=== PATIENT | female | born 1980 | race Caucasian/White ===

== ENCOUNTER 2017-04-16 12:32 | Emergency (ER) | payer OTHER ==
--- NOTE | ~2017-04-16 | MR18 ---
[facility] A Service of [facility] RADIOLOGY TEXT RESULTS PATIENT: SARAH ROMO LOCATION: [facility] : 78 UNIT #: [id number] AGE: [address]: Stepan Deluna DO SEX: F ORDER DR: [id number] [facility] [address] [place], [place] [address] [id number] E MR#: [id number] Acc #: [id number] NAME: SARAH ROMO : 1980 SEX: F STUDY DATE/TIME: 04/16/2017 14:25 UNIT: [facility] ROOM: STUDY DESCRIPTION: MR Brain Wo Contrast Attending Physician: Stepan Deluna D.O. Ordering Physician: Stepan Deluna D.O. Primary Care Physician: Scooby Madison M.D. MRI CENTER REPORT This report is preliminary unless electronic signature is present. EXAM MRI of the brain without contrast dated 04/16/2017. COMPARISON MRI brain without contrast dated 11/23/2014. HISTORY Facial numbness, possible right leg numbness with headache since 09:00 a.m. today. Possible stroke. FINDINGS Multisequence multiplanar imaging of the brain was obtained without contrast. No acute stroke, space-occupying intracranial mass, mass effect, midline shift or hydrocephalus. Age-appropriate parenchymal volume is seen. Vascular flow voids of the major cerebral arteries and dural venous sinuses are not completely included in these thicker slices. Thick slices through the sella with the pituitary gland, pineal region and upper cervical spine are within normal limits. Varying degrees of paranasal sinus mucosal thickening is noted, relatively worse in bilateral ethmoid sinuses, followed by bilateral maxillary and then bilateral sphenoid and bifrontal sinuses. Air fluid level is noted particularly in the left maxillary antrum. IMPRESSION 1. No demonstrable intracranial abnormality including acute stroke. 2. Varying degrees of paranasal sinus mucosal thickening is noted with fluid in the left maxillary antrum. Correlate with awsjy-[id number]-twnspdg sinusitis. Dictated by... Terra Antoine M.D. THIS IS AN ELECTRONICALLY VERIFIED REPORT STS. [facility] A Service of [facility] RADIOLOGY TEXT RESULTS PATIENT: SARAH ROMO LOCATION: [facility] : 78 UNIT #: [id number] AGE: [address]: Stepan Deluna DO SEX: F ORDER DR: Terra Antoine M.D. at 04/17/2017 9:31 PM CPR/jf TD: 04/16/2017 17:56 JOB #: [id number] MRI CENTER REPORT Page 1 of 1 COPY
[2017-04-16 13:33] LABS: BASOPHIL% 0.4 % (0-2.5); EOSINOPHIL# 0.6 X10e3 (0-0.7); HEMATOCRIT 40.9 % (35.0-45.0); HEMOGLOBIN 13.6 gm/dL (12.0-16.0); LYMPHOCYTE% 21.5 % (17.0-45.0); MEAN CELL VOLUME 88.6 FL (83-96); MEAN CORPUSCULAR HEMOGLOBIN 29.4 PG (28-34); MEAN CORPUSCULAR HGB CONC 33.2 g/dL (30-36); MEAN PLATELET VOLUME 8.5 FL (6.5-11.5); MONOCYTE# 0.7 X10e3 (0-1.0); MONOCYTE% 7.2 % (3.0-12.0); NEUTROPHIL# 6.1 X10e3 (1.5-7.1); NEUTROPHIL% 64.9 % (40-75); PLATELET COUNT 298 X10e3 (140-420); RED BLOOD COUNT 4.61 X10e (3.90-5.30); RED CELL DISTRIBUTION WIDTH 12.5 % (11.0-15.5); WHITE BLOOD COUNT 9.4 X10e3 (4.0-10.5)
[2017-04-16 13:39] LABS: DIFF IND NO
[2017-04-16 13:49] LABS: ALBUMIN SERUM 4.1 g/dL (3.5-5.0); BILIRUBIN, DIRECT 0.1 mg/dL (0.0-0.2); BILIRUBIN,INDIRECT 0.7 mg/dL (0.0-0.9); BILIRUBIN,TOTAL 0.8 mg/dL (0.2-2.0); BUN/CREATININE RATIO 26.66; CALCIUM SERUM 8.9 mg/dL (8.4-10.2); CREATININE SERUM 0.6 mg/dL (0.6-1.4); GLOM FILT RATE Estimated 116.4 mL/min (>60); POTASSIUM 3.6 mmol/L (3.5-5.1); PROTEIN TOTAL SERUM 7.4 g/dL (6.0-8.3)
[2017-04-16 14:07] LABS: PARTIAL THROMBOPLASTIN TIME 25.7 SECONDS (23.5-31.3); PROTHROMBIN TIME (PATIENT) 10.5 SECONDS (9.6-11.5)
[2017-04-16 14:44] LABS: URINE SOURCE CLEAN CATCH
[2017-04-16 14:53] LABS: URINE APPEARANCE CLEAR; URINE BILIRUBIN NEG (NEG); URINE BLOOD TRACE (NEG); URINE COLOR YELLOW; URINE GLUCOSE NEG (NEG); URINE KETONE 1+ (NEG); URINE LEUKOCYTE ESTERASE 1+ (NEG); URINE NITRATE NEG (NEG); URINE PH 5.5 (5-8); URINE PROTEIN NEG (NEG); URINE SPECIFIC GRAVITY 1.024 (1.003-1.035); URINE UROBILINOGEN 0.2 MG/DL (NEG)
[2017-04-16 14:54] LABS: U HYALINE CASTS AUWI 0-2 /[LPF]; URBCS1 AUWI 0-2 /[HPF] (0-2); URINE BACTERIA AUWI NEG (NEGATIVE); URINE SQUAMOUS EPITHELIAL CELL OCC /[HPF]
[2017-04-16 14:55] LABS: CULTURE INDICATED? NO
[2017-04-16 15:13] LABS: AMPHETAMINE POS (NEG); BARBITURATES NEG (NEG); BENZODIAZEPINES NEG (NEG); COCAINE NEG (NEG); MARIJUANA POS (NEG); OPIATES NEG (NEG); TRICYCLIC ANTIDEPRESSANTS NEG (NEG); U METHADONE NEG (NEG)
== END 2017-04-16 18:10 | disposition home or self-care (01) ==
LOC: CED 12:32
PROVIDERS: Emergency Medicine
DX: R51 Headache (principal); R20.2 Paresthesia of skin; F15.10 Other stimulant abuse, uncomplicated
CPT/HCPCS: 70551; 80048; 80076; 80307; 81003; 82947; 85025; 85610; 85730; 99284; J1200; J2765